=== PATIENT | female | born 2000 | race Caucasian/White ===

== ENCOUNTER 2024-03-13 12:43 | Inpatient (IN) | payer BC, MEDICAID ==
[2024-03-13] MEDS ORDERED: Sodium Chloride 0.9% 20 ML SDV IV PRN (17:25)
[2024-03-13] MEDS ORDERED: Terbutaline 1 MG/ML SDV SUBCUT PRN (17:25)
[2024-03-13] MEDS ORDERED: Carboprost Tromethamine 250 MCG/1 mL Vial IM PRN (17:25)
[2024-03-13] MEDS ORDERED: Sodium Chloride 0.9% 2.5 ML Syringe FLUSH PRN (17:25)
[2024-03-13] MEDS ORDERED: Butorphanol 2 MG/ML SDV IVPUSH PRN (17:25)
[2024-03-13] MEDS ORDERED: Methylergonovine 0.2 MG/1 ML Amp IM PRN (17:25)
[2024-03-13] MEDS ORDERED: Sodium Chloride 0.9% 10 ML Syringe FLUSH PRN (17:25)
[2024-03-13] MEDS ORDERED: Misoprostol 25 MCG (1/4 of 100 MCG) Tab VAG PRN (17:25)
[2024-03-13] MEDS: Misoprostol 25 MCG (1/4 of 100 MCG) Tab VAG PRN (18:46)
[2024-03-13] MEDS ORDERED: Phenylephrine HCl In 0.9% NaCl 1 MG/10 ML Syringe IVPUSH PRN (19:17)
[2024-03-13] MEDS ORDERED: ePHEDrine 50 MG/ML SDV IVPUSH PRN (19:17)
[2024-03-13 19:23] LABS: HEMATOCRIT 34.3 % (37.0-47.0); HEMOGLOBIN 11.6 g/dL (12.0-16.0); MEAN CORPUSCULAR HEMOGLOBIN 30.4 pg (28.0-32.0); MEAN CORPUSCULAR HGB CONC 33.8 g/dL (32.0-36.0); MEAN PLATELET VOLUME 11.2 fL (9.4-12.3); PLATELET COUNT,PLT 348 K/uL (150-400); RED BLOOD CELL COUNT 3.81 M/uL (4.10-5.30)
[2024-03-13] MEDS ORDERED: dexmedeTOMIDine HCl 200 MCG/2 ML SDV EPIDUR SCH (19:30)
[2024-03-13] MEDS: Misoprostol 50 MCG (1/2 of 100 MCG) Tab PO ONE (19:31)
[2024-03-13 19:44] LABS: A/G RATIO 0.8 (0.9-1.6); ALBUMIN 2.8 g/dL (3.4-5.0); BILIRUBIN TOTAL 0.3 mg/dL (0.2-1.0); CALCIUM 8.8 mg/dL (8.5-10.1); CARBON DIOXIDE,CO2 22.1 mmol/L (21.0-32.0); CREATININE 0.6 mg/dL (0.6-1.0); EST CRCL DRUG DOSING (CG) 137.68 mL/min; POTASSIUM,K 3.9 mmol/L (3.5-5.1); PROTEIN TOTAL,TP 6.4 g/dL (6.4-8.2)
[2024-03-13 22:09] LABS: AMPHETAMINES SCREEN, URINE NEGATIVE (CUTOFF=500); BARBITURATE SCREEN,URINE NEGATIVE (CUTOFF=200); BENZODIAZEPINES SCREEN,URINE NEGATIVE (CUTOFF=150); BUPRENORPHINE SCREEN,URINE NEGATIVE (CUTOFF=10); METHADONE SCREEN, URINE NEGATIVE (CUTOFF=200); METHAMPHETAMINES SCREEN, URINE NEGATIVE (CUTOFF=500); OXYCODONE SCREEN,URINE NEGATIVE (CUT0FF=100); PCP SCREEN,URINE NEGATIVE (CUTOFF=25); THC SCREEN,URINE 20 NG/ML NEGATIVE (CUTOFF=50)
[2024-03-13] MEDS: Insulin Glargine,Hum.Rec.Anlog 100 UNIT/ML 3 ML Pen SUBCUT SCH (22:10)
[2024-03-14] MEDS: Lactated Ringers 1,000 ML IV SCH (06:37)
[2024-03-14] MEDS: Ropivacaine HCl/PF 400 MG in Premix Bag 1 BAG EPIDUR SCH (06:49)
[2024-03-14 09:27] LABS: PROTEIN CREATININE RATIO,URINE 0.2; PROTEIN,URINE RANDOM 18.4 mg/dL (<11.9)
[2024-03-14] MEDS: Oxytocin/0.9 % Sodium Chloride 30 UNIT/500 ML BAG IV SCH ×2 (09:53→13:16)
[2024-03-14] MEDS: Ondansetron 4 MG/2 ML SDV IVPUSH PRN (10:26)
[2024-03-14] MEDS: Water For Irrigation,Sterile 1,000 ML Container IRR PRN (12:39)
[2024-03-14] MEDS: Misoprostol 200 MCG Tab PO PRN (12:48)
[2024-03-14] MEDS: Lidocaine 1% 50 ML MDV INJECT PRN (12:56)
[2024-03-14] MEDS ORDERED: Lanolin 100% Cream 7 GM Tube TOP PRN (14:48)
[2024-03-14] MEDS ORDERED: Docusate Sodium 100 MG Cap PO PRN (14:48)
[2024-03-14 14:58] LABS: PH,UMBILICAL ARTERIAL 7.307 (7.18-7.38); PH,UMBILICAL VENOUS 7.316 (7.25-7.45)
[2024-03-14] MEDS: Witch Hazel Medicated Pads 40/Jar TOP PRN (17:47)
[2024-03-14] MEDS: Benzocaine/Menthol 20%-0.5% Spray 78 GM Cannister TOP PRN (17:47)
[2024-03-14] MEDS: Ibuprofen 800 MG Tab PO PRN (22:43)
[2024-03-14] MEDS: Acetaminophen 500 MG Tab PO PRN (22:44)
[2024-03-14] MEDS: Insulin Glargine,Hum.Rec.Anlog 100 UNIT/ML 3 ML Pen SUBCUT SCH (22:45)
[2024-03-15 06:06] LABS: HEMATOCRIT 27.4 % (37.0-47.0); MEAN CORPUSCULAR HEMOGLOBIN 29.8 pg (28.0-32.0); MEAN CORPUSCULAR HGB CONC 32.8 g/dL (32.0-36.0); MEAN CORPUSCULAR VOLUME 90.7 fL (83.0-99.0); MEAN PLATELET VOLUME 10.2 fL (9.4-12.3); PLATELET COUNT,PLT 228 K/uL (150-400); RED BLOOD CELL COUNT 3.02 M/uL (4.10-5.30)
[2024-03-19 23:02] LABS: BENZOYLECGONINE,URN,QNT 112 ng/mL
== END 2024-03-16 13:30 | disposition home or self-care (01) | DRG 560 ==
LOC: MW.OB 12:43 → OBSVTOIN 03-14 12:43 → MW.OB 03-14 18:20
PROVIDERS: ADMIT Obstetrics & Gynecology; ATTEND Obstetrics & Gynecology
PROC: 10E0XZZ Delivery of Products of Conception, External Approach (ICD-10-PCS; principal; 2024-03-14)
PROC: 3E0P7VZ Introduction of Hormone into Female Reproductive, Via Natural or Artificial Opening (ICD-10-PCS; 2024-03-14)
PROC: 3E033VJ Introduction of Other Hormone into Peripheral Vein, Percutaneous Approach (ICD-10-PCS; 2024-03-14)
PROC: 3E0DXGC Introduction of Other Therapeutic Substance into Mouth and Pharynx, External Approach (ICD-10-PCS; 2024-03-14)
PROC: 0KQM0ZZ Repair Perineum Muscle, Open Approach (ICD-10-PCS; 2024-03-14)
PROC: 3E0R3BZ Introduction of Anesthetic Agent into Spinal Canal, Percutaneous Approach (ICD-10-PCS; 2024-03-14)
PROC: 00HU33Z Insertion of Infusion Device into Spinal Canal, Percutaneous Approach (ICD-10-PCS; 2024-03-14)
DX: O24.424 Gestational diabetes mellitus in childbirth, insulin controlled (principal); Z37.0 Single live birth; O99.214 Obesity complicating childbirth; E66.01 Morbid (severe) obesity due to excess calories; O70.1 Second degree perineal laceration during delivery; O99.02 Anemia complicating childbirth; Z3A.39 39 weeks gestation of pregnancy; Z88.0 Allergy status to penicillin; Z90.89 Acquired absence of other organs; Z98.890 Other specified postprocedural states
CPT/HCPCS: 01967; 36415; 51702; 59025; 59409; 80053; 80305-QW; 82570; 82803; 82947; 84156; 85027; 86592; 86850; 86900; 86901; A9270-GY; G0480; J2001; J2405; J2590; J2795; J3490; J7120